=== PATIENT | male | born 1945 | race Caucasian/White ===

== ENCOUNTER → 2017-01-26 | Outpatient (CLI) | payer MEDICARE ==
[~2017-01-26] MED LIST: ATOR40TA70 PO; BETH50TA PO; CLIN300C3 PO; COLC0.6C3 PO; FINA5TAB6 PO; HYDR-3812 PO; LOSA25TA21 PO; RIVA20TA PO; TAMS0.4C2 PO
--- NOTE | 2017-01-26 15:12 | Diagnostic Imaging Report ---
PA and lateral views of the chest Indication: Cough. Comparison 04/28/2015 Findings: The lungs are clear. The heart size is normal. There is no effusion or pneumothorax The mediastinum and yoselin appear unremarkable. Impression: Unremarkable study. Dictated by: Dictated on workstation # [id number]
== END ==
LOC: RAD 14:44
PROVIDERS: ATTEND Family Medicine
DX: R05 Cough (principal)
CPT/HCPCS: 71020

== ENCOUNTER → 2017-12-04 | Outpatient (CLI) | payer MEDICARE ==
[~2017-12-04] MED LIST changes: +ACHD5005 PO; -HYDR-3812 PO; -LOSA25TA21 PO; +LOSA25TA6 PO
--- NOTE | 2017-12-04 16:25 | Diagnostic Imaging Report ---
INDICATION: Right lower quadrant pain. KUB FINDINGS: There is a moderate amount of stool throughout the colon. Bowel gas pattern is normal. There are no pathologic masses or calcifications. IMPRESSION: No acute abnormality is seen in the abdomen. Dictated by: Dictated on workstation # [id number]
--- NOTE | 2017-12-04 16:27 | Diagnostic Imaging Report ---
INDICATION: Chest injury from a fall. PA and lateral chest. FINDINGS: Heart and mediastinum are normal. Lungs are clear. There are no effusions or pneumothoraces. There is a possible nondisplaced fracture of the right lateral ninth rib. IMPRESSION: Probable nondisplaced fracture of right lateral ninth rib. Dictated by: Dictated on workstation # [id number]
== END ==
LOC: RAD 15:53
PROVIDERS: ATTEND Nurse Practitioner Family
DX: S29.9XXA Unspecified injury of thorax, initial encounter (principal); R10.31 Right lower quadrant pain; W19.XXXA Unspecified fall, initial encounter
CPT/HCPCS: 71046; 74018

== ENCOUNTER → 2018-04-30 | Outpatient (CLI) | payer MEDICARE ==
[~2018-04-30] MED LIST changes: +LOSA25TA41 PO; -LOSA25TA6 PO
--- NOTE | 2018-04-30 14:16 | Diagnostic Imaging Report ---
PROCEDURE: CT abdomen and pelvis without contrast. TECHNIQUE: Multiple contiguous axial images were obtained through the abdomen and pelvis without the use of intravenous contrast. INDICATION: Gross hematuria. Correlation is made with prior exam from 01/18/2016. FINDINGS: The lung bases are clear. No discrete liver mass is identified. The gallbladder is unremarkable. No biliary ductal dilatation is seen. The pancreas and spleen are unremarkable. No adrenal mass is identified. Small low densities in the left kidney are again noted suggestive of cysts. There are no calculi identified. There is no hydronephrosis. No definite ureteral calculus or ureteral dilatation is seen. Generalized bladder wall thickening is similar to prior CT from 2016. The aorta is calcified but nonaneurysmal. No central retroperitoneal or mesenteric lymphadenopathy is seen. Small and large bowel loops are normal caliber. There is diverticulosis of the descending colon and sigmoid but no evidence of acute diverticulitis. Prostate is unremarkable. There is a fat-containing left inguinal hernia. IMPRESSION: 1. No evidence of urinary tract calculi or obstruction. There continues to be generalized bladder wall thickening, similar to prior study from 01/18/2016. 2. Uncomplicated colonic diverticulosis. 3. Fat-containing left inguinal hernia. Dictated by: Dictated on workstation # [id number]
== END ==
LOC: RAD 13:00
PROVIDERS: ATTEND Urology
DX: K57.30 Diverticulosis of large intestine without perforation or abscess without bleeding (principal); K40.90 Unilateral inguinal hernia, without obstruction or gangrene, not specified as recurrent
CPT/HCPCS: 74176

== ENCOUNTER → 2018-06-19 | Outpatient (CLI) | payer MEDICARE ==
[~2018-06-19] MED LIST changes: -RIVA20TA PO; +RIVA20TA2 PO
--- NOTE | 2018-06-19 15:54 | Diagnostic Imaging Report ---
PROCEDURE: US carotid duplex, bilateral. TECHNIQUE: Multiple real-time grayscale images were obtained over the carotid arteries in various projections, bilaterally. Additional spectral analysis and color Doppler duplex images were also obtained. INDICATION: Chronic atrial fibrillation and TIA. FINDINGS: There is mild calcified plaque at the left carotid bifurcation and proximal left ICA. Velocities are normal bilaterally. No velocity elevation or stenosis is seen. Both vertebral arteries show antegrade flow. IMPRESSION: No evidence of a hemodynamically significant stenosis. Parameters based on the consensus panel Gonzalez-Scale and Doppler ultrasound criteria published December 2002, Radiology, Volume 229. DOPPLER (peak systolic velocity M/S Right Left CCA 0.76 0.79 ICA Proximal 0.96 1.2 ICA Mid 0.82 1.0 ICA Distal 0.71 0.66 RATIO 1.3 1.5 ECA 1.0 1.2 VERT 0.28 0.59 Dictated by: Dictated on workstation # [id number]
== END ==
LOC: RAD 13:17
PROVIDERS: ATTEND Family Medicine
DX: G45.9 Transient cerebral ischemic attack, unspecified (principal); I48.2 Chronic atrial fibrillation
CPT/HCPCS: 93880

== ENCOUNTER → 2018-10-08 | Outpatient (CLI) | payer MEDICARE ==
--- NOTE | 2018-10-08 14:34 | Diagnostic Imaging Report ---
INDICATION: Back pain. Radiculopathy. COMPARISON: None FINDINGS: Frontal and lateral views of the lumbar spine were obtained. Alignment and vertebral heights are maintained. There is no fracture or destructive process. Moderate multilevel degenerative disease is noted in the lumbar spine. Limited views of the abdomen demonstrate nonobstructive bowel gas pattern. IMPRESSION: 1. No acute fracture or dislocation of the lumbar spine. 2. Moderate multilevel degenerative changes. Dictated by: Dictated on workstation # [id number]
--- NOTE | 2018-10-08 15:02 | Diagnostic Imaging Report ---
INDICATION: Right lower back pain. COMPARISON: None. FINDINGS: Three views of the sacrum and coccyx show no fractures, dislocations, or other acute bony abnormalities identified. Joint spaces are well maintained throughout. The soft tissues appear unremarkable. No radiopaque foreign bodies are identified. IMPRESSION: Unremarkable radiographic exam of the sacrum and coccyx. Dictated by: Dictated on workstation # [id number]
--- NOTE | 2018-10-08 15:19 | Diagnostic Imaging Report ---
PROCEDURE: CT lumbar spine without contrast. TECHNIQUE: Multiple contiguous axial images were obtained through the lumbar spine without the use of intravenous contrast. Sagittal and coronal reformations were then performed. Auto Exposure Controls were utilized during the CT exam to meet ALARA standards for radiation dose reduction. INDICATION: Low back pain. COMPARISON: Study compared with abdominopelvic CT that included sagittal and coronal reconstructions. That exam was dated 04/30/2018. FINDINGS: Lumbar statures are stable. The alignment is unremarkable. No fracture or acute endplate irregularity. Some leftward convexity scoliotic curvature chronic. Sargent-lumbar spondylosis and facet arthrosis chronic. No bony destructive process. There is diverticular disease of the partially visualized sigmoid colon and a nonaneurysmal atherosclerotic calcified aorta. No fracture or acute appearing abnormality. At L2-L3, osteophyte disc material and posterior element hypertrophy result in moderate to severe canal stenosis with right greater than left foraminal narrowing. At L3-L4, there is moderate canal stenosis with moderate right and mild left foraminal stenosis. At L4-L5, there is moderate severity of canal stenosis with severe right and at least moderate left bony foraminal stenosis. At the L5-S1 level, there is mild canal and mild right with mild to moderate left foraminal stenosis. IMPRESSION: Chronic spondylosis and facet arthrosis with chronic multilevel canal and foraminal stenoses. No fracture or traumatic malalignment. No acute finding or change apparent. Dictated by: Dictated on workstation # [id number]
== END ==
LOC: RAD 13:29
PROVIDERS: ATTEND Family Medicine
DX: M47.26 Other spondylosis with radiculopathy, lumbar region (principal); M48.061 Spinal stenosis, lumbar region without neurogenic claudication
CPT/HCPCS: 72100; 72131; 72220

== ENCOUNTER 2019-01-08 14:58 | Outpatient (RCR) | payer MEDICARE | END 2019-01-08 15:47 | disposition home or self-care (01) | PROVIDERS: ATTEND Family Medicine | DX: M51.36 Other intervertebral disc degeneration, lumbar region (principal) ==

== ENCOUNTER → 2019-01-24 | Outpatient (CLI) | payer MEDICARE | LOC: CARD 13:16 | PROVIDERS: ATTEND Internal Medicine Cardiovascular Disease | DX: I08.0 Rheumatic disorders of both mitral and aortic valves (principal); I48.20 Chronic atrial fibrillation, unspecified; R01.1 Cardiac murmur, unspecified | CPT/HCPCS: 93306 ==

== ENCOUNTER 2019-02-15 23:24 | Inpatient (IN) | payer MEDICARE ==
[~2019-02-15] VITALS: Ht 177.8 cm; Wt 88.1 kg
[2019-02-15] MEDS ORDERED: NS IV 1000 ML 1,000 ML IV SCH (23:40)
[2019-02-15] MEDS ORDERED: ACETAMINOPHEN 500 MG TAB (TYLENOL) PO STA (23:40)
--- NOTE | 2019-02-15 23:51 | ED General ---
General Stated Complaint: AMS,VERY THIRSTY Source of Information: Patient, Spouse History of Present Illness Date Seen by Provider: Feb 15, 2019 Time Seen by Provider: 23:35 Initial Comments PT ARRIVES VIA POV FROM HOME, NEEDS FULL ASSIST OUT OF VEHICLE AND INTO A WHEELCHAIR. STATES THAT SHE WAS IN [place], AND AROUND 1915--SHE TRIED CALLING HIM AND HE WOULD NOT ANSWER PHONE SHE STATES SHE GOT HOME AROUND 2230 AND FOUND HIM ON THE FLOOR, HALF-CLOTHED, WITH URINE ON THE BATHROOM FLOOR, GLASS OF WATER HAD BEEN SPILLED, AND PT WAS SOMEWHAT CONFUSED. PT HAD NO RECOLLECTION OF TONIGHT'S EVENTS PT HAS C/O BEING VERY THIRSTY TONIGHT PT HAS BEEN VERY TIRED FOR THE LAST 4-5 DAYS PT DENIES PAIN ANYWHERE NO CHEST PAIN, NO SHORTNESS OF BREATH NO HEADACHE NO NECK OR BACK PAIN NO DIZZINESS NO NAUSEA/VOMITING/DIARRHEA OR ABDOMINAL PAIN PT HAS HAD ONGOING ISSUES WITH MOBILITY--HAS BEEN SEEING A NEUROLOGIST IN [place], AND HAD MRI 01/13/19 IN SHE STATES THAT NO DX HAS BEEN MADE AND PT HAS NOT RECEIVED ANY TREATMENT, OTHER THAN PHYSICAL THERAPY ON HIS BACK. STATES "HIS LEGS DON'T WANT TO WORK SOMETIMES" HAS CHRONIC BACK PAIN AND LUMBAR RADICULOPATHY, PER OLD RECORDS. PT HAS CHRONIC ATRIAL FIBRILLATION AND IS ON XARELTO. Allergies and Home Medications Allergies Coded Allergies: hydrocodone (Verified Allergy, Unknown, NAUSEA, 01/13/16) mupirocin (Verified Allergy, Unknown, ITCHING, 01/13/16) Sulfa (Sulfonamide Antibiotics) (Verified Adverse Reaction, Mild, nausea, 01/08/16) Home Medications Atorvastatin Calcium 40 Mg Tablet, 40 MG PO DAILY, (Reported) Bethanechol Chloride 50 Mg Tablet, 50 MG PO QID, (Reported) Finasteride 5 Mg Tablet, 5 MG PO DAILY, (Reported) Losartan Potassium 25 Mg Tablet, 25 MG PO DAILY, (Reported) Rivaroxaban 20 Mg Tablet, 20 MG PO DAILY, (Reported) Tamsulosin HCl 0.4 Mg Cap.er.24h, 0.4 MG PO DAILY, (Reported) Past Jhbhbrt-Treamx-Gmvvag Hx Patient Social History Recent Foreign Travel: No Contact w/Someone Who Travel: No Recent Hopitalizations: No Immunizations Up To Date Date of Pneumonia Vaccine: Jan 12, 2014 Date of Influenza Vaccine: Nov 14, 2015 Seasonal Allergies Seasonal Allergies: No Past Medical History High Cholesterol, Hypertension Stroke Arthritis Cataract Physical Exam Vital Signs Capillary Refill : Height, Weight, BMI Height: 6'0.00" Weight: 200lbs. 0.0oz. [id number]; 27.1 BMI Method:Stated Progress/Results/Core Measures Suspected Sepsis SIRS Temperature: Pulse: Respiratory Rate: Blood Pressure / Mean: Results/Orders My Orders Orders - GAUDENCIO DUENAS DO Accucheck Stat ONCE (02/15/19 23:35) Ed Iv/Invasive Line Start (02/15/19 23:35) Ekg Tracing (02/15/19 23:35) O2 (02/15/19 23:35) Monitor-Rhythm Ecg Trace Only (02/15/19 23:35) Cbc With Automated Diff (02/15/19 23:35) Comprehensive Metabolic Panel (02/15/19 23:35) Ua Culture If Indicated (02/15/19 23:35) Alcohol (02/15/19 23:40) Amylase (02/15/19 23:40) Creatine Kinase (02/15/19 23:40) Creatine Kinase Mb (02/15/19 23:40) Drug Screen Stat (Urine) (02/15/19 23:40) Lactic Acid Analyzer (02/15/19 23:40) Lipase (02/15/19 23:40) Magnesium (02/15/19 23:40) Protime With Inr (02/15/19 23:40) Partial Thromboplastin Time (02/15/19 23:40) Thyroid Analyzer (02/15/19 23:40) Blood Culture (02/15/19 23:40) Influenza A And B Antigens (02/15/19 23:40) Myoglobin Serum (02/15/19 23:40) Ed Iv/Invasive Line Start (02/15/19 23:40) Ns Iv 1000 Ml (Sodium Chloride 0.9%) (02/15/19 23:40) Acetaminophen Tablet (Tylenol Tablet) (02/15/19 23:40) Ct Head Wo-R/O Stroke (02/15/19 23:44) Chest 1 View, Ap/Pa Only (02/15/19 23:44) Vital Signs/I&O Capillary Refill : Departure Impression Condition: Improved Departure-Patient Inst. Referrals: TESSIE LOPEZ DO (PCP/Family) Primary Care Physician GAUDENCIO DUENAS DO Feb 15, 2019 23:51
[2019-02-16 00:02] LABS: BASOPHILS % (AUTO) 0 % (0-10); EOSINOPHILS % (AUTO) 0 % (0-10); HEMATOCRIT 40 % (40-54); HEMOGLOBIN 13.7 G/DL (13.3-17.7); LYMPHOCYTES # (AUTO) 0.9 X 10^3 (1.0-4.0); LYMPHOCYTES % (AUTO) 7 % (12-44); MEAN CORPUSCULAR HEMOGLOBIN 32 PG (25-34); MEAN CORPUSCULAR HGB CONC 34 G/DL (32-36); MEAN CORPUSCULAR VOLUME 94 FL (80-99); MEAN PLATELET VOLUME 9.7 FL (7.4-10.4); MONOCYTES # (AUTO) 0.8 X 10^3 (0.0-1.0); MONOCYTES % (AUTO) 7 % (0-12); NEUTROPHILS # (AUTO) 10.5 X 10^3 (1.8-7.8); NEUTROPHILS % (AUTO) 86 % (42-75); PLATELET COUNT 285 10^3/uL (130-400); RED CELL DISTRIBUTION WIDTH 14.1 % (10.0-14.5); WHITE BLOOD COUNT 12.3 10^3/uL (4.3-11.0)
[2019-02-16 00:11] LABS: BILIRUBIN,URINE NEGATIVE (NEGATIVE); CLARITY,URINE TURBID; COLOR,URINE YELLOW; GLUCOSE, URINE (UA) NEGATIVE (NEGATIVE); KETONES,URINE NEGATIVE (NEGATIVE); LEUKOCYTE ESTERASE ,URINE 3+ (NEGATIVE); NITRITE,URINE NEGATIVE (NEGATIVE); PROTEIN,URINE 2+ (NEGATIVE)
[2019-02-16 00:13] LABS: INR 1.3 (0.8-1.4)
[2019-02-16 00:24] LABS: ALANINE AMINOTRANSFERASE 85 U/L (0-55); ALBUMIN 3.3 GM/DL (3.2-4.5); ALKALINE PHOSPHATASE 94 U/L (40-136); AMYLASE 28 U/L (25-125); BILIRUBIN,TOTAL 0.5 MG/DL (0.1-1.0); BUN/CREATININE RATIO 28; CALCIUM 8.5 MG/DL (8.5-10.1); CARBON DIOXIDE 15 MMOL/L (21-32); CHLORIDE 105 MMOL/L (98-107); CREATINE KINASE 49 U/L (30-200); CREATININE SERUM 1.69 MG/DL (0.60-1.30); GFR ESTIMATED 40; GLUCOSE 120 MG/DL (70-105); LIPASE 18 U/L (8-78); MAGNESIUM 1.7 MG/DL (1.6-2.4); POTASSIUM 4.6 MMOL/L (3.6-5.0); SODIUM 134 MMOL/L (135-145); TOTAL PROTEIN 6.8 GM/DL (6.4-8.2)
[2019-02-16 00:27] LABS: AMPHETAMINE SCREEN, URINE NEGATIVE (NEGATIVE); BARBITURATE SCREEN URINE NEGATIVE (NEGATIVE); BENZODIAZEPINES SCREEN URINE NEGATIVE (NEGATIVE); CANNABINOID SCREEN, URINE NEGATIVE (NEGATIVE); COCAINE SCREEN URINE NEGATIVE (NEGATIVE); METHADONE STAT NEGATIVE (NEGATIVE); METHAMPHETAMINE SCREEN URINE S NEGATIVE (NEGATIVE); OPIATE SCREEN URINE NEGATIVE (NEGATIVE); OXYCODONE STAT NEGATIVE (NEGATIVE); PROPOXYPHENE STAT NEGATIVE (NEGATIVE); TRICYCLIC ANTIDEPRESSANTS SCRE NEGATIVE (NEGATIVE)
[2019-02-16 00:28] LABS: RBC,URINE TNTC /HPF; WBC,URINE TNTC /HPF
[2019-02-16 00:29] LABS: BACTERIA,URINE LARGE /HPF
[2019-02-16] MEDS ORDERED: APIX5TAB PO (00:42)
[2019-02-16] MEDS ORDERED: PRAV20TA3 PO (00:42)
[2019-02-16 00:43] LABS: CREATINE KINASE MB 1.2 NG/ML (<6.6); TSH (THYROID ANALYZER) 0.47 UIU/ML (0.35-4.94)
[2019-02-16] MEDS ORDERED: cefTRIAXone FOR IV USE 2,000 MG in WATER (STERILE) FOR INJECTION 20 ML IV ONE (00:45)
[2019-02-16 02:20] VITALS: BP 103/64
--- NOTE | 2019-02-16 02:20 | NUR ---
SUSHANT HINDS admitted to room 419-1, with an admitting diagnosis of SEPSIS, UTI, AMS, AND ACUTE RENAL INSUFFICIENCY on 02/16/19 from ED via , accompanied by ED STAFF. SUSHANT HINDS introduced to surroundings, call light, bed controls, phone, TV, temperature control, lights, meal times, smoking policy, visitor policy, side rail policy, bathrooms and showers. Patient Rights given to patient in the handbook. SUSHANT HINDS verbalizes understanding that [facility] is not responsible for the loss or damage to any personal effects or valuables that are kept in the patients possession during their hospitalization. SUSHANT HINDS verbalizes understanding of Interdisciplinary Patient Education. Patient and/or family were informed about the Rapid Response Team and its purpose.
[2019-02-16] MEDS ORDERED: 1/2 NS W/KCL 20 MEQ/L 1,000 ML IV ONE (03:39)
[2019-02-16] MEDS: 1/2 NS W/KCL 20 MEQ/L 1,000 ML IV SCH ×2 (03:51→11:42)
[2019-02-16 04:30] VITALS: BP 102/62
[2019-02-16] MEDS ORDERED: TMSL.4C PO (04:34)
[2019-02-16] MEDS ORDERED: ACETAMINOPHEN 500 MG TAB (TYLENOL) PO PRN (04:45)
[2019-02-16] MEDS ORDERED: IBUPROFEN 800 MG (MOTRIN) TAB PO PRN (04:45)
[2019-02-16 05:50] LABS: BASOPHILS % (AUTO) 0 % (0-10); EOSINOPHILS % (AUTO) 0 % (0-10); HEMATOCRIT 39 % (40-54); HEMOGLOBIN 12.9 G/DL (13.3-17.7); LYMPHOCYTES # (AUTO) 0.9 X 10^3 (1.0-4.0); LYMPHOCYTES % (AUTO) 7 % (12-44); MEAN CORPUSCULAR HEMOGLOBIN 32 PG (25-34); MEAN CORPUSCULAR HGB CONC 33 G/DL (32-36); MEAN CORPUSCULAR VOLUME 95 FL (80-99); MEAN PLATELET VOLUME 10.2 FL (7.4-10.4); MONOCYTES % (AUTO) 8 % (0-12); NEUTROPHILS # (AUTO) 11.1 X 10^3 (1.8-7.8); NEUTROPHILS % (AUTO) 85 % (42-75); PLATELET COUNT 253 10^3/uL (130-400); RED CELL DISTRIBUTION WIDTH 14.2 % (10.0-14.5); WHITE BLOOD COUNT 13.1 10^3/uL (4.3-11.0)
[2019-02-16 06:09] LABS: ALBUMIN 2.9 GM/DL (3.2-4.5); BILIRUBIN,TOTAL 0.4 MG/DL (0.1-1.0); CALCIUM 8.1 MG/DL (8.5-10.1); CREATININE SERUM 1.72 MG/DL (0.60-1.30); POTASSIUM 4.9 MMOL/L (3.6-5.0)
--- NOTE | 2019-02-16 07:10 | Diagnostic Imaging Report ---
PROCEDURE: CT head wo r/o stroke. TECHNIQUE: Multiple contiguous axial images were obtained through the brain without the use of intravenous contrast. Auto Exposure Controls were utilized during the CT exam to meet ALARA standards for radiation dose reduction. INDICATION: Altered mental status. COMPARISON: None. FINDINGS: No intracranial hemorrhage, mass effect, hydrocephalus or extra-axial fluid collections. No CT evidence for territorial infarction. Osseous structures are intact. The visualized paranasal sinuses and mastoids are clear. IMPRESSION: No acute intracranial CT findings. Dictated by: Dictated on workstation # [id number]
[2019-02-16 08:00] VITALS: BP 179/92
--- NOTE | 2019-02-16 08:49 | Diagnostic Imaging Report ---
EXAM: CHEST 1 VIEW, AP/PA ONLY INDICATION: Altered mental status. Weakness. Fever. COMPARISON: 12/04/2017. FINDINGS: Normal heart size and pulmonary vascularity. No dense consolidation, pleural effusion or pneumothorax. No acute osseous findings. No significant change. IMPRESSION: No acute cardiopulmonary findings. Dictated by: Dictated on workstation # [id number]
--- NOTE | 2019-02-16 09:55 | NUR ---
Received call from ICU-tel for increased HR 120-140bpm. pt currently up in BA with PAM
--- NOTE | 2019-02-16 10:58 | NUR ---
Dr. Alexandra messaged about DVT med and discontinuation of IV fluids. Waiting for reply
[2019-02-16 12:00] VITALS: BP 152/70
[2019-02-16] MEDS ORDERED: SALINE NASAL SPRAY (OCEAN) 45 ML BTL PRN (12:00)
--- NOTE | 2019-02-16 12:26 | History & Physical-Hospitalist ---
History of Present Illness HPI/Chief Complaint CC: UTI with AMS HPI: This is a 73yoWM clinic patient of Dr White who presented to the ER with confusion and more unsteady balance compared to his usual "off balance" status and was found to have sepsis with UTI and ARF. Currently patient is demanding the IVF cease and appears to be improved overall since admit. at bedside who contributes to the conversation. Confusion appears to be clearing but still causing deficits in the story. He sees Dr Lanier every 4 months for urinary retention and previously had recurrent UTI's but has done remarkably well since patient has been maintained on the regimen per Dr Lanier which has resolved the retention. 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 He has had MRI and other tests and they are unclear of the etiology of this condition. I have heplocked IV at his request but unsure what his baseline creatinine is since it is not completely normal but he is eating and drinking now so will do as he is requesting. Home meds will be restarted which include OAC. I have ordered PT and OT and he reluctantly participated today. Source: patient, family, RN/MD Exam Limitations: no limitations Date Seen 02/16/19 Time Seen by a Provider: 10:45 Attending Physician Marisol Cartwright DO PCP Gaye White DO Referring Physician Date of Admission Feb 16, 2019 at 01:15 Home Medications & Allergies Home Medications Reviewed patient Home Medication Reconciliation performed by pharmacy medication reconciliations prototype technician and/or nursing. Patients Allergies have been reviewed. Allergies Allergies Coded Allergies hydrocodone (Verified Allergy, Unknown, NAUSEA, 01/13/16) mupirocin (Verified Allergy, Unknown, ITCHING, 01/13/16) Sulfa (Sulfonamide Antibiotics) (Verified Adverse Reaction, Mild, nausea, 01/08/16) Past Rynyjnl-Fpjtfn-Iunhzk Hx Past Med/Social Hx: Reviewed Nursing Past Med/Soc Hx, Reviewed and Corrections made Patient Social History Marrital Status: Employed/Student: retired Alcohol Use: Denies Use Recreational Drug Use: No Smoking Status: Never a Smoker Recent Foreign Travel: No Contact w/other who traveled: No Recent Hopitalizations: No Recent Infectious Disease Expo: No Immunizations Up To Date Date of Pneumonia Vaccine: Jan 12, 2014 Date of Influenza Vaccine: Dec 24, 2018 Seasonal Allergies Seasonal Allergies: No Past Medical History Cardiac: Atrial Fibrillation, High Cholesterol, Hypertension Neurological: Neuropathy, TIA, Vertigo Ataxia Genitourinary: Benign Prostatic Hyperpl, Prostate Problems, Bladder Infection Musculoskeletal: Arthritis, Chronic Back Pain HEENT: Cataract History of Blood Disorders: No Review of Systems Constitutional: see HPI, dizziness, malaise, weakness Respiratory: no symptoms reported Cardiovascular: no symptoms reported Psychiatric/Neurological: Anxiety, Depressed, Weakness Physical Exam Physical Exam Vital Signs Vital Signs - First Documented 02/15/19 02/16/19 23:30 00:19 Temp 37.8 Pulse 114 Resp 20 B/P (MAP) 146/93 (110) Pulse Ox 98 O2 Delivery Room Air Capillary Refill : Less Than 3 Seconds Height, Weight, BMI Height: 6'0.00" Weight: 200lbs. 0.0oz. 90.855296pc; 27.99 BMI Method:Stated General Appearance: No Apparent Distress, WD/WN, Chronically ill, Other (confused, irritable) Eyes: Right Eye Normal Inspection, Right Eye PERRL HEENT: PERRL/EOMI, Normal ENT Inspection, Pharynx Normal, Moist Mucous Membranes Neck: Full Range of Motion, Normal Inspection, Non Tender Respiratory: Chest Non Tender, Lungs Clear, Normal Breath Sounds, No Accessory Muscle Use, No Respiratory Distress Cardiovascular: No Edema, No Gallop, No JVD, No Murmur, Normal Peripheral Pulses, Irregularly Irregular Gastrointestinal: Normal Bowel Sounds, No Organomegaly, No Pulsatile Mass, Non Tender, Soft Back: Normal Inspection, No CVA Tenderness, No Vertebral Tenderness Extremity: Normal Capillary Refill, Normal Inspection, Normal Range of Motion, Non Tender, No Calf Tenderness, No Pedal Edema Neurologic/Psychiatric: Alert, Oriented x3 (subtle recall deficit), No Motor/Sensory Deficits, Normal Mood/Affect, parking enforcer II-XII Norm as Tested Skin: Normal Color, Warm/Dry Lymphatic: No Adenopathy Results Results/Procedures Labs Laboratory Tests 02/15/19 23:51 02/16/19 05:24 Patient resulted labs reviewed. Assessment/Plan Admission Diagnosis Assessment: Sepsis Encephalopathy UTI Urinary retention hx managed by Dr Lanier AF on OAC managed by Dr Reaves in Ataxia of unknown source managed by Neuro CRI unknown baseline creatinine Plan: Increase po fluids Check labs in am Home meds PT/OT IV abx Admission Status: Inpatient Order (span 2 midnights) Reason for Inpatient Admission: AMS with UTI and ARF Diagnosis/Problems Diagnosis/Problems (1) Sepsis (2) Atrial fibrillation (3) Anticoagulant prescribed (4) Ataxia (5) UTI (urinary tract infection) (6) Altered mental state (7) Acute renal insufficiency Clinical Quality Measures DVT/VTE Risk/Contraindication: Risk Factor Score Per Nursin RFS Level Per Nursing on Admit: 4+=Very High MARISOL CARTWRIGHT DO Feb 16, 2019 12:26
--- NOTE | 2019-02-16 13:11 | Physical Therapy Evaluation ---
PT Evaluation-General Medical Diagnosis Admission Date Feb 16, 2019 at 01:15 Medical Diagnosis: Sepsis;UTI Onset Date: Feb 15, 2019 Therapy Diagnosis Therapy Diagnosis: unsteady standing horacelce Height/Weight Height (Feet): 6 Height (Inches): 0.00 Weight (Pounds): 200 Weight (Ounces): 0.0 Precautions Precautions/Isolations: Standard Precautions Weight Bear Status Full Weight Bearing Full Weight Bearing Referral Reason for Referral: Evaluation/Treatment, Gait Social History Home: Single Level Current Living Status: Spouse Entry Into Home: Stairs With Railing PT Steps Into Home: 3 Prior Prior Level of Function SCALE: Activities may be completed with or without assistive devices. 0-Tgrooudrna-kxgrpcd completes the activity by him/herself with no assistance from a helper. 5-Set-up or Clean-up Assistance-helper sets up or cleans up; patient completes activity. [place] assists only prior to or following the activity. 4-Supervision or Touching Assistance-helper provides verbal cues and/or touching/steadying and/or contact guard assistance as patient completes activ ity. Assistance may be provided throughout the activity or intermittently. 3-Partial/Moderate Assistance-helper does LESS THAN HALF the effort. [place] lifts, holds or supports trunk or limbs, but provides less than half the effort. 2-Substantial/Maximal Assistance-helper does MORE THAN HALF the effort. [place] lifts or holds trunk or limbs and provides more than half the effort. 7-Kmysqtkft-glhuhq does ALL the effort. Patient does none of the effort to complete the activity. Or, the assistance of 2 or more helpers is required for the patient to complete the activity. If activity was not attempted, code reason: 7-Patient Refused. 9-Not Applicable-not attempted and the patient did not perform the activity before the current illness, exacerbation or injury. 10-Not Attempted due to Environmental Limitations-(lack of equipment, weather restraints, etc.). 88-Not Attempted due to Medical Conditions or Safety Concerns. Bed Mobility: 6 Transfers (B,C,W/C): 6 Gait: 6 Stairs: 6 Indoor Mobility (Ambulation): Independent Stairs: Independent Prior Devices Use: None PT Evaluation-Current Subjective Pt reports he still a bit "nik". Reports he is normally an active individual. He was admitted due to confusion and weakness. Objective Patient Orientation: Confused ROM/Strength ROM Lower Extremities WFL Strength Lower Extremities 5/5 Sensory Vision: Functional Hearing: Functional Sensation Right Lower Extremit: Intact Sensation Left Lower Extremity: Intact Transfers Patient demonstrated bed mobility and transfers at set up level due to mild confusion. Gait Does the Patient Walk?: Yes Mode of Locomotion: Walk Anticipated Mode of Locomotion: Walk Walk 10 feet (QC): 5 Walk 50 ft with 2 Turns(QC): 5 Walk 150 ft (QC): 88 Walking 10ft/uneven surface-QC: 88 Distance: 50ft Gait Assistive Device: None Comments/Gait Description Pt ambulated 50ft with CGA. He has a wide base of support and mild lateral ataxia. Pt has capacity to walk much further but refused on this date. Balance Sitting Static: Normal Sitting Dynamic: Normal Standing Static: Fair Standing Dynamic: Fair Picking up an Object (QC): 88 Assessment/Needs Pt is recovering from the effects of UTI and sepsis. His mental state is clearing. Functionally he has good strength but is unsteady on his feet and has unsafe decision making. Pt will benefeit from PT to work on gait, ROM, and safety. Rehab Potential: Good PT Longterm Goals Talent Sourcer Goals PT Talent Sourcer Goals Time Frame: Feb 22, 2019 Roll Left & Right (QC): 6 Sit to Lying (QC): 6 Lying-Sitting on Side/Bed(QC): 6 Sit to Stand (QC): 6 Chair/Ykt-bn-Yuehu Xfer(QC): 6 Toilet Transfer (QC): 6 Does the Patient Walk: Yes Walk 10 feet (QC): 6 Walk 50ft with 2 Turns (QC): 6 Walk 150 ft (QC): 6 4 Steps (QC): 5 PT Plan Problem List Problem List: Activity Tolerance, Balance, Gait Treatment/Plan Treatment Plan: Continue Plan of Care Treatment Plan: Bed Mobility, Gait, Safety Treatment Duration: Feb 22, 2019 Frequency: 6 times per week Estimated Hrs Per Day: .25 hour per day Patient and/or Family Agrees t: Yes Safety Risks/Education Patient Education: Gait Training Teaching Recipient: Patient Discharge Recommendations Plan Home with spouse. Time/GCodes Time In: 1200 Time Out: 1220 Total Billed Treatment Time: 20 Total Billed Treatment visit, eval moderate complexity 20 minutes DERIC ROBIN PT Feb 16, 2019 13:11
[2019-02-16] MEDS ORDERED: HYDROcodone/APAP 5 MG/325 MG (LORTAB) TAB PO PRN (14:30)
[2019-02-16] MEDS ORDERED: ONDANSETRON 4 MG/2 ML (SDV) Z0FRAN IVP PRN (14:30)
[2019-02-16] MEDS ORDERED: MELATONIN 3 MG TABLET PO PRN (14:30)
[2019-02-16] MEDS ORDERED: CALCIUM CARBONATE 500 MG (TUMS) TAB.CHEW PO PRN (14:30)
[2019-02-16] MEDS ORDERED: LOPERAMIDE 2 MG (IMODIUM) TABLET PO PRN (14:30)
[2019-02-16] MEDS ORDERED: DOCUSATE SODIUM 100 MG (COLACE) CAP PO PRN (14:30)
[2019-02-16] MEDS ORDERED: diphenhydrAMINE 25 MG TAB (BENADRYL) PO PRN (14:30)
[2019-02-16 16:00] VITALS: BP 136/70
[2019-02-16 20:00] VITALS: BP 139/63
[2019-02-16] MEDS: SENNA W/DOCUSATE (SENOKOT S) TABLET PO SCH (20:18)
[2019-02-16] MEDS: cefTRIAXone 1,000 MG/SWFI 10 ML IV PUSH IV SCH ×2 (20:18)
[2019-02-16] MEDS: FINASTERIDE (PROSCAR) 5 MG TAB PO SCH (20:19)
[2019-02-16] MEDS: APIXABAN 5 MG (ELIQUIS) TABLET PO SCH (20:19)
[2019-02-16] MEDS: TAMSULOSIN 0.4 MG (FLOMAX) CAP PO SCH (20:19)
[2019-02-16] MEDS: BETHANECHOL 25 MG (URECHOLINE) TAB PO SCH (20:19)
[2019-02-17 00:38] VITALS: BP 111/65
[2019-02-17 04:00] VITALS: BP 120/77
[2019-02-17 05:32] LABS: BASOPHILS % (AUTO) 0 % (0-10); EOSINOPHILS % (AUTO) 0 % (0-10); HEMATOCRIT 36 % (40-54); HEMOGLOBIN 12.2 G/DL (13.3-17.7); LYMPHOCYTES % (AUTO) 8 % (12-44); MEAN CORPUSCULAR HEMOGLOBIN 32 PG (25-34); MEAN CORPUSCULAR HGB CONC 34 G/DL (32-36); MEAN CORPUSCULAR VOLUME 95 FL (80-99); MEAN PLATELET VOLUME 9.9 FL (7.4-10.4); MONOCYTES # (AUTO) 0.9 X 10^3 (0.0-1.0); MONOCYTES % (AUTO) 7 % (0-12); NEUTROPHILS # (AUTO) 11.3 X 10^3 (1.8-7.8); NEUTROPHILS % (AUTO) 85 % (42-75); PLATELET COUNT 236 10^3/uL (130-400); WHITE BLOOD COUNT 13.3 10^3/uL (4.3-11.0)
[2019-02-17 05:48] LABS: ALBUMIN 2.7 GM/DL (3.2-4.5); BILIRUBIN,TOTAL 0.4 MG/DL (0.1-1.0); CALCIUM 8.6 MG/DL (8.5-10.1); CREATININE SERUM 1.68 MG/DL (0.60-1.30); POTASSIUM 4.6 MMOL/L (3.6-5.0); TOTAL PROTEIN 5.9 GM/DL (6.4-8.2)
[2019-02-17 06:23] LABS: LYMPHOCYTES % (MANUAL) 7 %; MONOCYTES % (MANUAL) 3 %; NEUTROPHILS % (MANUAL) 90 %
[2019-02-17] MEDS: SENNA W/DOCUSATE (SENOKOT S) TABLET PO SCH ×2 (08:17→20:35)
[2019-02-17] MEDS: APIXABAN 5 MG (ELIQUIS) TABLET PO SCH ×2 (08:17→20:35)
[2019-02-17] MEDS: TAMSULOSIN 0.4 MG (FLOMAX) CAP PO SCH ×2 (08:17→20:35)
[2019-02-17] MEDS: BETHANECHOL 25 MG (URECHOLINE) TAB PO SCH ×2 (08:17→20:35)
[2019-02-17 08:45] VITALS: BP 123/63
[2019-02-17 12:02] VITALS: BP 127/64
--- NOTE | 2019-02-17 13:00 | Progress Note - Hospitalist ---
Subjective HPI/CC On Admission Date Seen by Provider: Feb 17, 2019 Time Seen by Provider: 11:00 CC: UTI with AMS HPI: This is a 73yoWM clinic patient of Dr White who presented to the ER with confusion and more unsteady balance compared to his usual "off balance" status and was found to have sepsis with UTI and ARF. Currently patient is demanding the IVF cease and appears to be improved overall since admit. at bedside who contributes to the conversation. Confusion appears to be clearing but still causing deficits in the story. He sees Dr Lanier every 4 months for urinary retention and previously had recurrent UTI's but has done remarkably well since patient has been maintained on the regimen per Dr Lanier which has resolved the retention. 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 He has had MRI and other tests and they are unclear of the etiology of this condition. I have heplocked IV at his request but unsure what his baseline creatinine is since it is not completely normal but he is eating and drinking now so will do as he is requesting. Home meds will be restarted which include OAC. I have ordered PT and OT and he reluctantly participated today. Subjective/Events-last exam Fever is sporadic No pain is reported Patient in chair today and appears much improved at bedside All answers provided when questioned about what we are waiting on as far as urine culture and explained bacteria and antibiotic selection in-depth Loose stools from abx Creat improved a bit Chronic renal insuff? Review of Systems General: Fatigue, Malaise Musculoskeletal: back pain Focused Exam Lactate Level 02/15/19 23:51: Lactic Acid Level 0.71 Objective Exam Vital Signs Vital Signs Date Time Temp Pulse Resp B/P (MAP) Pulse Ox O2 Delivery O2 Flow Rate FiO2 02/17/19 19:45 36.8 61 20 106/58 (74) 95 Room Air Capillary Refill : Less Than 3 Seconds General Appearance: No Apparent Distress, WD/WN, Chronically ill Respiratory: Chest Non Tender, Lungs Clear, Normal Breath Sounds, No Accessory Muscle Use, No Respiratory Distress Cardiovascular: Regular Rate, Rhythm, No Edema, No Gallop, No JVD, No Murmur, Normal Peripheral Pulses Neurologic/Psychiatric: Alert, Oriented x3, No Motor/Sensory Deficits, Normal Mood/Affect Results/Procedures Lab Laboratory Tests 02/17/19 05:21 Patient resulted labs reviewed. Assessment/Plan Assessment and Plan Assess & Plan/Chief Complaint Assessment: Sepsis Encephalopathy UTI Urinary retention hx managed by Dr Lanier AF on OAC managed by Dr Reaves in Ataxia of unknown source managed by Neuro CRI unknown baseline creatinine Plan: Increase po fluids Check labs in am Home meds PT/OT IV abx Diagnosis/Problems Diagnosis/Problems (1) Sepsis (2) Atrial fibrillation (3) Anticoagulant prescribed (4) Ataxia (5) UTI (urinary tract infection) (6) Altered mental state (7) Acute renal insufficiency Clinical Quality Measures DVT/VTE Risk/Contraindication: Risk Factor Score Per Nursin RFS Level Per Nursing on Admit: 4+=Very High NEISHA CARTWRIGHT DO Feb 17, 2019 13:00
[2019-02-17 15:49] VITALS: BP 122/62
[2019-02-17 19:45] VITALS: BP 106/58
[2019-02-17] MEDS: FINASTERIDE (PROSCAR) 5 MG TAB PO SCH (20:35)
[2019-02-17] MEDS: cefTRIAXone 1,000 MG/SWFI 10 ML IV PUSH IV SCH ×2 (20:36)
[2019-02-18 00:11] VITALS: BP 122/64
[2019-02-18 03:32] VITALS: BP 119/56
[2019-02-18 06:08] LABS: BASOPHILS % (AUTO) 0 % (0-10); EOSINOPHILS # (AUTO) 0.2 10^3/uL (0.0-0.3); EOSINOPHILS % (AUTO) 2 % (0-10); HEMATOCRIT 37 % (40-54); HEMOGLOBIN 12.3 G/DL (13.3-17.7); LYMPHOCYTES # (AUTO) 1.2 X 10^3 (1.0-4.0); LYMPHOCYTES % (AUTO) 10 % (12-44); MEAN CORPUSCULAR HEMOGLOBIN 31 PG (25-34); MEAN CORPUSCULAR HGB CONC 33 G/DL (32-36); MEAN CORPUSCULAR VOLUME 94 FL (80-99); MEAN PLATELET VOLUME 9.7 FL (7.4-10.4); MONOCYTES # (AUTO) 0.6 X 10^3 (0.0-1.0); MONOCYTES % (AUTO) 5 % (0-12); NEUTROPHILS # (AUTO) 10.1 X 10^3 (1.8-7.8); NEUTROPHILS % (AUTO) 84 % (42-75); PLATELET COUNT 302 10^3/uL (130-400); RED CELL DISTRIBUTION WIDTH 14.1 % (10.0-14.5); WHITE BLOOD COUNT 12.1 10^3/uL (4.3-11.0)
[2019-02-18 06:33] LABS: BILIRUBIN,TOTAL 0.3 MG/DL (0.1-1.0); CALCIUM 8.6 MG/DL (8.5-10.1); CREATININE SERUM 1.18 MG/DL (0.60-1.30); POTASSIUM 4.6 MMOL/L (3.6-5.0); TOTAL PROTEIN 6.3 GM/DL (6.4-8.2)
[2019-02-18 08:00] VITALS: BP 117/67
[2019-02-18] MEDS ORDERED: BETH50TA9 PO (08:37)
[2019-02-18] MEDS ORDERED: UBID100C44 PO (08:37)
[2019-02-18] MEDS ORDERED: CHOL10007 PO (08:37)
[2019-02-18] MEDS ORDERED: [UNRECOGNIZED DRUG - OTHER] PO (08:40)
[2019-02-18] MEDS: APIXABAN 5 MG (ELIQUIS) TABLET PO SCH (09:21)
[2019-02-18] MEDS: TAMSULOSIN 0.4 MG (FLOMAX) CAP PO SCH (09:21)
[2019-02-18] MEDS: SENNA W/DOCUSATE (SENOKOT S) TABLET PO SCH (09:22)
[2019-02-18] MEDS: BETHANECHOL 25 MG (URECHOLINE) TAB PO SCH (09:24)
--- NOTE | 2019-02-18 09:28 | Occ Therapy Progress Note ---
Therapy Progress Note OT orders received and chart reviewed. OT talked with pt and his who report his is discharging later today. They report pt is currently functioning at his PLOF and state they do not have any concerns with him returning home. Pt and decline OT services at this time due to pt being at his PLOF, and no skilled OT services are indicated at this time due to pt being at prior level. Thank you for this referral. 1, visit [id number] ANA ELIZONDO OT Feb 18, 2019 09:28
[2019-02-18] MEDS ORDERED: cefTRIAXone FOR IV USE 1,000 MG in WATER (STERILE) FOR INJECTION 10 ML IV ONE (09:45)
--- NOTE | 2019-02-18 09:52 | NUR ---
SPOKE WITH THE PT (HE HAD A TYPED HOME MEDS LIST THAT IS ON HIS CHART) ALSO SPOKE WITH DANELLE TO COMPLETE THE MED REC. THE PT WAS ABLE TO TELL ME HOW/WHEN HE TAKES EACH MED. THE FOLLOWING ARE FILL DATES FROM DANELLE: 11-22-2018 TAMSULOSIN #180/90DS 11-23-2018 BETHANECHOL #360/90DS 12-24-2018 PRAVASTATIN #90/90DS 01-21-2019 ELIQUIS #60/30DS 02-15-2018 LOSARTAN #90/90DS 02-15-2018 FINASTERIDE #90/90DS OTC MEDS: VIT D CO Q 10 FLORIDIX LIQUID
--- NOTE | 2019-02-18 10:18 | Discharge Instructions ---
Discharge Instructions Reconcile Patient Problems Problems Reviewed?: Yes Patient Instructions Goal/Follow Up Appt: See me tomorrow Activity & Diet Discharge Diet: Cardiac Diet Activity as Tolerated: Yes TESSIE LOPEZ DO Feb 18, 2019 10:18
--- NOTE | 2019-02-18 12:31 | Discharge Summary ---
Diagnosis/Chief Complaint Date of Admission Feb 16, 2019 at 01:15 Date of Discharge Discharge Date: Feb 18, 2019 Discharge Diagnosis 1. Acute UTI with Klebsiella Pneumonia with Sepsis--improved 2. Acute Renal Failure--improved 3. Chronic Atrial Fibrillation--stable 4. Chronic Ataxia--worse with admission but improving back to baseline 5. Chronic Urinary Retention/Benign Prostatic Hypertrophy--follows with urology Discharge Summary Hospital Course Was the Problem List Reviewed?: Yes Hospital Course This is a 73 year old male brought to the emergency room with confusion and worsening ataxia. He was found to have a UTI with sepsis as well as acute renal failure. He was admitted to the medical floor and placed on IVF rehydration and treated with IV rocephin. His creatinine was 1.72 on admit and is down to 1.18 on discharge. His urine culture grew out Klebsiella pneumonia which was sensitive to the rocephin. His blood cultures were negative. He is afebrile and feeling much better. His confusion has resolved and his ataxia is back to baseline. He has been up ambulating in the halls and is anxious to go home. He was given a early dose of IV rocephin prior to discharge and then will see me in my office tomorrow for possible repeat rocephin injection depending on how he is doing overall. Labs Laboratory Tests 02/15/19 23:37: Glucometer 113H 02/15/19 23:51: White Blood Count 12.3H, Red Blood Count 4.31L, Neutrophils (%) (Auto) 86H, Lymphocytes (%) (Auto) 7L, Neutrophils # (Auto) 10.5H, Lymphocytes # (Auto) 0.9L , Prothrombin Time 17.0H, Sodium Level 134L, Carbon Dioxide Level 15L, Blood Urea Nitrogen 48H, Creatinine 1.69H, Glucose Level 120H, Aspartate Amino Transf (AST/SGOT) 42H, Alanine Aminotransferase (ALT/SGPT) 85H, Myoglobin 92.9H, B-Type Natriuretic Peptide 137.4H 02/16/19 00:04: Urine Protein 2+H, Urine Leukocyte Esterase 3+H, Urine RBC (Auto) 3+H, Urine RBC TNTCH, Urine WBC TNTCH, Urine Bacteria LARGEH 02/16/19 05:24: White Blood Count 13.1H, Red Blood Count 4.09L, Neutrophils (%) (Auto) 85H, Lymphocytes (%) (Auto) 7L, Neutrophils # (Auto) 11.1H, Lymphocytes # (Auto) 0.9L , Carbon Dioxide Level 16L, Blood Urea Nitrogen 48H, Creatinine 1.72H, Glucose Level 137H, Alanine Aminotransferase (ALT/SGPT) 67H, Hemoglobin 12.9L, Hematocrit 39L, Chloride Level 108H, Calcium Level 8.1L, Total Protein 6.0L, Albumin 2.9L 02/17/19 05:21: White Blood Count 13.3H, Red Blood Count 3.81L, Hemoglobin 12.2L, Hematocrit 36L , Neutrophils (%) (Auto) 85H, Lymphocytes (%) (Auto) 8L, Neutrophils # (Auto) 11.3H, Chloride Level 108H, Carbon Dioxide Level 17L, Blood Urea Nitrogen 46H, Creatinine 1.68H, Glucose Level 129H, Total Protein 5.9L, Albumin 2.7L 02/18/19 05:57: White Blood Count 12.1H, Red Blood Count 3.95L, Hemoglobin 12.3L, Hematocrit 37L , Neutrophils (%) (Auto) 84H, Lymphocytes (%) (Auto) 10L, Neutrophils # (Auto) 10.1H, Chloride Level 109H, Carbon Dioxide Level 18L, Blood Urea Nitrogen 35H, Total Protein 6.3L, Albumin 3.0L, Aspartate Amino Transf (AST/SGOT) 73H, Alanine Aminotransferase (ALT/SGPT) 96H Procedures None. Discharge Physical Examination Allergies: Coded Allergies: hydrocodone (Verified Allergy, Unknown, NAUSEA, 01/13/16) mupirocin (Verified Allergy, Unknown, ITCHING, 01/13/16) Sulfa (Sulfonamide Antibiotics) (Verified Adverse Reaction, Mild, nausea, 01/08/16) Vitals & I&Os Vital Signs Date Time Temp Pulse Resp B/P (MAP) Pulse Ox O2 Delivery O2 Flow Rate FiO2 02/18/19 08:00 98 Room Air 02/18/19 08:00 36.2 85 18 117/67 (84) General Appearance: Alert, Oriented X3, Cooperative, No Acute Distress Respiratory: Clear to Auscultation Cardiovascular: Other (Irregularly irregular) Abdominal: Normal Bowel Sounds, Soft, No Tenderness Extremities: No Clubbing, No Cyanosis, No Edema Skin: No Rashes Neuro: Normal Gait Psych/Mental Status: Mental Status NL, Mood NL Discharge Home Medications Reviewed and agree with Discharge Medication list on patient's Discharge Instruction sheet Instructions to Patient/Family Please see electronic discharge instructions given to patient. Clinical Quality Measures DVT/VTE Risk/Contraindication: Risk Factor Score Per Nursin RFS Level Per Nursing on Admit: 4+=Very High TESSIE LOPEZ DO Feb 18, 2019 12:31
--- NOTE | 2019-02-21 13:00 | Physician Query Clarification ---
PQ-Further Specificity Admission/Discharge Admission Date: Feb 16, 2019 at 01:15 Discharge Date: Feb 18, 2019 at 12:46 The medical record reflects the following clinical scenario: History/Risk Factors: Sepsis, UTI, Encephalopathy Clinical Findings: T 37.8 C, R 20 , P 114, WBC 12.3, AMS, confusion Treatment: IV fluids, IV Ceftriaxon Question: Can you further specify the type of encephalopathy per the clinical indicators above? Please document a response in the Progress Notes or Discharge Summary. 1. Septic encephalopathy 2. Encephalopathy type undetermined 3. Other, with explanation of the clinical findings. 4. Clinically undetermined, no explanation for the clinical findings. PHYSICIAN RESPONSE Can you specify per above: Clinically undetermined Explanation/Clinical Findings Will have to clarify with admitting physician who documented that Please remember a lack of response to the above will prompt a phone page by CDI/Coding staff. In responding to this query, please exercise your independent professional judgment. The purpose of this communication is to more accurately reflect the complexity of your patients condition. The fact that a question is asked does not imply that any particular answer is desired or expected. Thank you for your timely response to this clarification. Requestors name: Ean THIS PHYSICIAN QUERY FORM IS A PERMANENT PART OF THE MEDICAL RECORD ILANA SYLVESTER Feb 21, 2019 13:00 TESSIE LOPEZ DO Feb 21, 2019 17:54
--- NOTE | 2019-02-25 09:31 | Physician Query Clarification ---
PQ-Further Specificity Admission/Discharge Admission Date: Feb 16, 2019 at 01:15 Discharge Date: Feb 18, 2019 at 12:46 The medical record reflects the following clinical scenario: History/Risk Factors: Sepsis, UTI, Encephalopathy Clinical Findings: T 37.8 C, R 20, P 114, WBC 12.3 Treatment: IV Ceftriaxone Question: Can you further specify type of encephalopathy per the clinical indicators above? Please document a response in the Progress Notes or Discharge Summary. 1. Septic encephalopathy 2. Encephalopathy type unknown 3. Other, with explanation of the clinical findings. 4. Clinically undetermined, no explanation for the clinical findings. PHYSICIAN RESPONSE Can you specify per above: 1 Please remember a lack of response to the above will prompt a phone page by CDI/Coding staff. In responding to this query, please exercise your independent professional judgment. The purpose of this communication is to more accurately reflect the complexity of your patients condition. The fact that a question is asked does not imply that any particular answer is desired or expected. Thank you for your timely response to this clarification. Requestors name: Ean THIS PHYSICIAN QUERY FORM IS A PERMANENT PART OF THE MEDICAL RECORD ILANA SYLVESTER Feb 25, 2019 09:31 NEISHA CARTWRIGHT DO Feb 25, 2019 11:08
== END 2019-02-18 12:46 | disposition home or self-care (01) | DRG 871 ==
LOC: EDUNIT# 23:24 → ER 23:26 → 4TH 02-16 01:15 → ER 02-16 02:09
PROVIDERS: ADMIT Family Medicine; ATTEND Internal Medicine
DX: A41.9 Sepsis, unspecified organism (principal); G93.41 Metabolic encephalopathy; N39.0 Urinary tract infection, site not specified; N17.9 Acute kidney failure, unspecified; R65.20 Severe sepsis without septic shock; I48.91 Unspecified atrial fibrillation; E78.00 Pure hypercholesterolemia, unspecified; N18.9 Chronic kidney disease, unspecified; I12.9 Hypertensive chronic kidney disease with stage 1 through stage 4 chronic kidney disease, or unspecified chronic kidney disease; H26.9 Unspecified cataract; M19.90 Unspecified osteoarthritis, unspecified site; M54.9 Dorsalgia, unspecified; G89.29 Other chronic pain; G62.9 Polyneuropathy, unspecified; N40.1 Benign prostatic hyperplasia with lower urinary tract symptoms; R33.8 Other retention of urine
CPT/HCPCS: 36415; 70450; 71045; 80053; 80306; 80320; 81000; 82150; 82550; 82553; 82962; 83605; 83690; 83735; 83874; 83880; 84443; 84484; 85007; 85025; 85027; 85610; 85730; 87040; 87077; 87088; 87186; 87804; 93005; 93041; 96361; 96374

== ENCOUNTER 2020-06-25 12:51 | Outpatient (RCR) | payer MEDICARE ==
[~2020-06-25 12:51] MED LIST changes: +APIX5TAB PO; -BETH50TA PO; +BETH50TA2 PO; +BETH50TA9 PO; +CHOL10007 PO; +PRAV20TA3 PO; +TMSL.4C PO; +UBID100C44 PO; +[UNRECOGNIZED DRUG - OTHER] PO
== END 2020-06-25 13:50 | disposition home or self-care (01) ==
PROVIDERS: ATTEND Family Medicine
DX: M51.16 Intervertebral disc disorders with radiculopathy, lumbar region (principal); G62.9 Polyneuropathy, unspecified

== ENCOUNTER → 2021-03-02 | Outpatient (CLI) | payer MEDICARE | LOC: LABNPT 08:40 | PROVIDERS: ATTEND Family Medicine | DX: R05.9 Cough, unspecified (principal); R09.81 Nasal congestion; Z20.822 Contact with and (suspected) exposure to COVID-19 | CPT/HCPCS: 87635 ==

== ENCOUNTER → 2022-02-03 | Outpatient (CLI) | payer MEDICARE ==
[~2022-02-03] MED LIST changes: -BETH50TA2 PO; +BETH50TA3 PO
--- NOTE | 2022-02-03 15:40 | Diagnostic Imaging Report ---
EXAM: RENAL ULTRASOUND DATE: February 03, 2022. COMPARISON: CT abdomen and pelvis April 30, 2018. INDICATION: 76-year-old male, urinary retention. PROCEDURE: Two-dimensional grayscale and color doppler examination of the kidneys is performed. FINDINGS: Right kidney: Unremarkable right kidney. No hydronephrosis. The right kidney measures 9.9 cm x 5.7 x 4.9 cm. Left kidney: There is an anechoic left renal lesion without internal blood flow consistent with benign cyst measuring 2.0 x 2.3 x 2.1 cm in size. No hydronephrosis. The left kidney measures 9.6 cm x 6.0 x 4.8 cm. Bladder: Unremarkable. IMPRESSION: 1. Benign left renal cyst. 2. Additional ultrasound assessment of the renal parenchyma is unremarkable. 3. No hydronephrosis. 4. Unremarkable ultrasound appearance of the urinary bladder. Dictated by: Dictated on workstation # [id number]
== END ==
LOC: RAD 14:40
PROVIDERS: ATTEND Specialist
DX: N28.1 Cyst of kidney, acquired (principal)
CPT/HCPCS: 76770

== ENCOUNTER 2022-10-12 13:18 | Outpatient (RCR) | payer MEDICARE | END 2022-10-13 | disposition home or self-care (01) | PROVIDERS: ATTEND Family Medicine | DX: M25.512 Pain in left shoulder (principal); R53.1 Weakness ==

== ENCOUNTER 2022-11-08 14:06 | Outpatient (RCR) | payer MEDICARE | END 2022-11-12 | disposition home or self-care (01) | PROVIDERS: ATTEND Family Medicine | DX: M25.512 Pain in left shoulder (principal); R53.1 Weakness; I10 Essential (primary) hypertension ==

== ENCOUNTER 2022-12-08 13:41 | Outpatient (RCR) | payer MEDICARE | END 2022-12-08 14:36 | disposition home or self-care (01) | PROVIDERS: ATTEND Family Medicine | DX: M25.512 Pain in left shoulder (principal); R53.1 Weakness; I10 Essential (primary) hypertension ==

== ENCOUNTER → 2022-12-23 | Outpatient (CLI) | payer MEDICARE ==
--- NOTE | 2022-12-23 18:45 | Diagnostic Imaging Report ---
EXAMINATION: Left shoulder radiographs, 4 views. COMPARISON: None. HISTORY: 77-year-old male, left shoulder pain. FINDINGS: There are mild acromioclavicular degenerative changes without large undersurface osteophyte. The glenohumeral joint space is well-maintained. The humeral head is normally positioned relative to the glenoid. There is no identified acute fracture. IMPRESSION: 1. Mild acromioclavicular degenerative changes without large undersurface osteophyte. 2. Unremarkable evaluation of the glenohumeral joint. 3. No acute bony abnormality. Dictated by: Dictated on workstation # [id number]
== END ==
LOC: RAD 13:32
PROVIDERS: ATTEND Family Medicine
DX: M19.012 Primary osteoarthritis, left shoulder (principal)
CPT/HCPCS: 73030

== ENCOUNTER → 2023-01-17 | Outpatient (CLI) | payer MEDICARE | LOC: ORTHO 12:50 | PROVIDERS: ATTEND Orthopaedic Surgery | DX: M75.102 Unspecified rotator cuff tear or rupture of left shoulder, not specified as traumatic (principal) | CPT/HCPCS: 99203 ==